=== PATIENT | female | born 1975 | race Caucasian/White ===

== ENCOUNTER 2021-01-05 11:24 | Inpatient (IN) | payer BC ==
[2021-01-05 12:05] LABS: HEMOGLOBIN 14.5 gm/dl (12.3-15.3); RED BLOOD COUNT 4.98 M/UL (4.00-5.10); WHITE BLOOD COUNT 5.3 K/UL (4.5-11.0)
[2021-01-05 12:48] LABS: BUN/CREATININE RATIO 20 (0-10)
[2021-01-05] MEDS ORDERED: AUGMENTIN 875-1 EACH PO (16:34)
[2021-01-05] MEDS ORDERED: ADULT LOW DOSE81 MG PO (16:34)
== END 2021-01-05 17:47 | disposition home or self-care (01) | DRG 153 ==
LOC: ER1 11:24 → CDU 15:10
PROVIDERS: Emergency Medicine; ADMIT Internal Medicine
DX: J32.4 Chronic pansinusitis (principal); E28.2 Polycystic ovarian syndrome; Z90.49 Acquired absence of other specified parts of digestive tract; Z82.49 Family history of ischemic heart disease and other diseases of the circulatory system
CPT/HCPCS: 70450; 70551; 71045; 80053; 82550; 82553; 83874; 84484; 84703; 85025; 85610; 85730; 93005; 99285

== ENCOUNTER → 2021-02-24 | Outpatient (CLI) | payer BC ==
[~2021-02-24] MED LIST: ADULT LOW DOSE81 MG PO; AUGMENTIN 875-1 EACH PO
== END ==
LOC: KOH-I 02-22 09:00
DX: J33.9 Nasal polyp, unspecified (principal); J32.4 Chronic pansinusitis; J34.89 Other specified disorders of nose and nasal sinuses
CPT/HCPCS: 70486